=== PATIENT | male | born 1955 | race Caucasian/White ===

== ENCOUNTER 2024-05-12 18:00 | Emergency (ER) | payer MEDICARE, SELFPAY ==
[2024-05-12 18:03] VITALS: BP 166/69
--- NOTE | 2024-05-12 19:58 | ED.GENMED ---
History of Present Illness
General
Chief Complaint: Skin Surface Trauma
Source: patient
Exam Limitations: none
Time Seen by Provider: 05/12/24 19:10
Nursing documentation reviewed up to this point in time: agreed with
History of Present Illness
History of Present Illness:
68-year-old male with past medical history as documented presents to the emergency room for evaluation of a left thumb injury. Patient says he was slicing an onion with a sharp knife and cut off the very tip of his left thumb. It has been bleeding
since, came to the ER for evaluation. No other injuries. Unsure of last tetanus.
Past History
Past History
ED Past Medical History: Arrthythmia (A fib) and HTN
ED Past Surgical History: Cardiac (Pacemaker inserted 08/06/22)
Review of Systems
Review of Systems
All Other Systems: ROS reviewed and negative except as documented in HPI and ROS
Skin: Reports other (Fingertip avulsion)
Phy Exam
Physical Exam
Physical Exam:
General: Well appearing and non-toxic
HEENT: protecting airway
Neck: appears supple
CV: No evidence of cyanosis
Resp: No accessory muscle use
Abd: Non-distended
Extremities: Patient has a tiny avulsion of the tip of the left thumb with steady venous oozing�very superficial avulsion, no skin flap or suturable material, no nailbed involvement, no exposed bone
Neuro: Alert
Psych: Normal affect
Scores
Heart Failure Risk
Heart Failure Risk Score: Not Applicable
Heart Score for Chest Pain Patients
STEMI patient?: Not applicable
Withdrawal Assessment of Alcohol
Withdrawal Assessment Completed?: Not applicable
Course
Orders/Labs/Results
Orders:
Orders
05/12/24 19:58
Tetanus/Diphth/Acelpertussis [Adacel] 0.5 ml IM .ONCE ONE
Vital Signs
Initial and Last Documented VS:
Initial Vital Signs
Temp Pulse Resp BP Pulse Ox
36.6 C 64 16 166/69 98
05/12/24 18:03 05/12/24 18:03 05/12/24 18:03 05/12/24 18:03 05/12/24 18:03
Last Documented Vital Signs
Temp Pulse Resp BP Pulse Ox
36.6 C 64 16 166/69 98
05/12/24 18:03 05/12/24 18:03 05/12/24 18:03 05/12/24 18:03 05/12/24 18:03
MDM/Problems Addressed
Differential Diagnosis Includes:
Fingertip avulsion
MDM/Problems Addressed:
68-year-old male presents with tiny superficial fingertip avulsion from which he has steady venous bleeding. No skin flap or suturable material. Applied topical epinephrine and Surgicel, clean dressing. Tetanus updated. Discharge with PCP
follow-up.
*Pulse Oximetry
Patient hypoxic: no
*Critical Care Note
Total Time (30-74mins, 75-104mins- exclusive of procedures): Not Applicable
Data Reviewed
Source: patient and spouse
ED Attending Note
-
Portions of this chart may have been created with voice recognition software.� Occasional wrong word or��sound alike� substitutions may have occurred due to the inherent limitations of voice recognition software.
Discharge Plan
Departure
Patient Disposition: Home (Routine Discharge)
Date of Disposition: 05/12/24
Time of Disposition: 20:29
Patient with high blood pressure during this ER visit?: Yes
Discharge Problem:
Avulsion of fingertip
Instructions: Wound Care (DC)
Referrals:
Noelle Reyna, [Family Provider] - Follow up in 5-7 days
Activity Restrictions/Additional Instructions:
Thank you for visiting the Emergency Department at [facility].
1. Please schedule a follow up appointment as directed. Call first thing tomorrow morning to make an appointment.
2. If indicated, please take your medications as instructed and indicated on discharge paperwork.
3. If any of your symptoms do not improve, or persist, or become more severe within 6-12 hours, please return to the emergency department for further care.
4. Please return to the emergency department if you develop a headache, neck pain/stiffness, fever greater than 100.4F, chest pain, shortness of breath, persistent nausea, vomiting, slurred speech, difficulty walking, numbness/tingling, weakness,
signs of infection or any other symptoms that are worrisome to you.
Please call [phone] if you have any questions.
Interventions
Interventions:
*General Assessment Last Done: 05/12/24 19:09
*Neglect/Abuse Screening Last Done: 05/12/24 19:09
ED- Fall Risk Assessment Last Done: 05/12/24 19:09
ED-Skin Assessment Last Done: 05/12/24 19:09
Discharge Date and Time
Print Language: PUERTO RICAN
[2024-05-12] MEDS: ADACEL 0.5 ML IM (20:22)
== END 2024-05-12 21:03 | disposition home or self-care (01) ==
LOC: EMR 18:00
PROVIDERS: EMERGENCY PHYSICIAN Emergency Medicine; FAMILY PHYSICIAN Internal Medicine
DX: S69.92XA Unspecified injury of left wrist, hand and finger(s), initial encounter (principal); S61.012A Laceration without foreign body of left thumb without damage to nail, initial encounter; W26.0XXA Contact with knife, initial encounter; I48.91 Unspecified atrial fibrillation; I10 Essential (primary) hypertension; Z23 Encounter for immunization; Z95.0 Presence of cardiac pacemaker
CPT/HCPCS: 99282; 90471; 90715

== ENCOUNTER 2024-10-30 14:44 | Emergency (ER) | payer MEDICARE, SELFPAY ==
[2024-10-30 14:48] VITALS: BP 162/87
[2024-10-30 15:29] LABS: % Basophils 0.8 % (0-2); % Immature Granulocytes 0.6 % (0-0.5); % Lymphocytes 18.9 % (20.5-51.1); % Monocytes 12.4 % (1.7-9.3); % Neutrophils 66.3 % (42.2-75.2); Absolute Basophils 0.1 10^3/uL (0-0.2); Absolute Eosinophils 0.1 10^3/uL (0-0.7); Absolute Lymphocytes 1.2 10^3/uL (1.2-3.4); Absolute Monocytes 0.8 10^3/uL (0.1-0.6); Absolute Neutrophils 4.2 10^3/uL (1.4-6.5); Hematocrit 39.6 % (39.0-52.0); Mean Corp Hgb Conc. 35.4 g/dL (33.0-37.0); Mean Corpuscular Hgb 33.3 pg (27.0-31.0); Mean Corpuscular Volume 94.3 fL (80.0-94.0); Nucleated Red Blood Cells % 0 % (-); Red Cell Dist. Width 14.3 % (11.5-14.5); White Blood Cell Count 6.3 10^3/uL (4.8-10.8)
[2024-10-30 15:35] LABS: ALT (SGPT) 28 U/L (0-50); AST (SGOT) 28 U/L (17-59); Albumin 5.6 g/dl (3.5-5.0); Alkaline Phosphatase 82 U/L (38-126); Blood Urea Nitrogen 32 mg/dl (9-20); Calcium 10.4 mg/dl (8.4-10.2); Carbon Dioxide 18 mmol/L (22-30); Chloride 106 mmol/L (98-107); Glucose 111 mg/dl (70-99); Sodium 139 mmol/L (135-145); Total Bilirubin 0.9 mg/dl (0.2-1.3); Total Protein 8.6 g/dl (6.3-8.2); eGFR 59.47
[2024-10-30 16:07] LABS: Troponin I < 0.012 ng/ml
--- NOTE | 2024-10-30 16:57 | ED.GENMED ---
History of Present Illness
General
Chief Complaint: Chest Pain
Source: patient
Exam Limitations: none
Time Seen by Provider: 10/30/24 16:53
Nursing documentation reviewed up to this point in time: agreed with
History of Present Illness
History of Present Illness:
Patient is a 69-year-old male with history hypertension, with pacemaker presenting with right-sided chest wall pain. Patient states he initially noticed symptoms on Tuesday and they have been constant since. He describes a somewhat sharp pain in
his right mid chest that is clearly worse with movement, stretching. Patient denies any exertional or pleuritic component to discomfort. Patient denies any shortness of breath, dizziness/lightheadedness, nausea, diaphoresis. Patient denies any
recent viral illness. No recent cough. No fever. No known rash. Patient has been taking Tylenol at home. He does note some mild improvement with Tylenol.
Given symptoms have not resolved completely�patient came to the emergency department for evaluation.
Patient denies any known injury although states he does feel like he may have pulled a muscle.
Past History
Past History
ED Past Medical History: Arrthythmia (A fib) and HTN
ED Past Surgical History: Cardiac (Pacemaker inserted 08/06/22)
Review of Systems
Review of Systems
Allergies reviewed?: Yes
All Other Systems: ROS reviewed and negative except as documented in HPI and ROS
Phy Exam
Physical Exam
Physical Exam:
Vitals: Hypertensive, otherwise vital signs stable. Afebrile
General: Patient is well appearing, no acute distress. Nontoxic appearing
Skin: Warm and dry, no rashes or lesions
Head: Normocephalic, atraumatic
Eyes: Sclera nonicteric. EOMs intact. No nystagmus.
Throat: Protecting airway
Neck: Normal ROM, no cervical spine tenderness, no meningismus. Trachea midline
Cardiac: Regular rate and rhythm, no murmurs. Point tenderness to right sternal border. No overlying ecchymoses or deformity.
Pulm: Normal respiratory effort, no wheezes, rales, rhonchi heard on exam. O2 saturation 100 on room air
Abdomen: Abdomen soft. No abdominal tenderness.
Extremities: No evidence of cyanosis or edema. Palpable DP pulses
Neuro: AAOx3. Grossly intact.
Psychiatric: Normal affect.
Scores
Heart Score for Chest Pain Patients
STEMI patient?: No
History: Slightly or Non-Suspicious
ECG: Normal
Age: >/= 65 years
Risk Factors: 1 or 2 Risk Factors
Troponin: </= Normal Limit
Heart Score for Chest Pain Patients: 3
Heart Score Risk: 2.5% MACE over next 6 weeks
Course
Orders/Labs/Results
Orders:
Orders
10/30/24 14:45
Electrocardiogram (*1) Urgent
Reason for Study: Chest Pain
EKG- Treatment ONCE
10/30/24 15:04
Comprehensive Metabolic Panel Urgent
10/30/24 15:05
Complete Blood Count/With Diff Urgent
10/30/24 15:09
Troponin I Urgent
10/30/24 17:26
Interrogate Pacemaker- Treatment ONCE
CR Chest - 2 Views Urgent
Comment:
Reason For Exam: Right sided chest wall pain
Abnormal Lab Results
10/30/24 10/30/24
15:04 15:05
RBC 4.20 L 10^6/uL
(4.70-6.10)
MCV 94.3 H fL
(80.0-94.0)
MCH 33.3 H pg
(27.0-31.0)
Absolute Monos (auto) 0.8 H 10^3/uL
(0.1-0.6)
Immature Gran % 0.6 H %
(0-0.5)
Lymphocytes % 18.9 L %
(20.5-51.1)
Monocytes % 12.4 H %
(1.7-9.3)
Carbon Dioxide 18 L mmol/L
(22-30)
BUN 32 H mg/dl
(9-20)
Glucose 111 H mg/dl
(70-99)
Calcium 10.4 H mg/dl
(8.4-10.2)
Total Protein 8.6 H g/dl
(6.3-8.2)
Albumin 5.6 H g/dl
(3.5-5.0)
10/30/24 15:05
10/30/24 15:04
Vital Signs
Initial and Last Documented VS:
Initial Vital Signs
Temp Pulse Resp BP Pulse Ox
98.2 F 81 20 162/87 100
10/30/24 14:48 10/30/24 14:48 10/30/24 14:48 10/30/24 14:48 10/30/24 14:48
Last Documented Vital Signs
Temp Pulse Resp BP Pulse Ox
98.2 F 80 18 160/80 98
10/30/24 14:48 10/30/24 19:32 10/30/24 19:32 10/30/24 19:32 10/30/24 19:32
MDM/Problems Addressed
Differential Diagnosis Includes:
Not limited to: Costochondritis, chest wall strain, zoster, pleurisy, pneumonia, acute coronary syndrome
MDM/Problems Addressed:
69-year-old male history with history as documented presenting with right sided chest wall pain constant since Tuesday. Pain very clearly worse with movement, stretching. No exertional or pleuritic component. No associated shortness of breath,
diaphoresis, lightheadedness, etc. Patient hypertensive, otherwise arrives with stable vital signs. He is afebrile. On physical exam�patient very well-appearing, no apparent distress. He is talkative and nontoxic. Heart regular rate and rhythm.
Lungs clear bilaterally. He does have point tenderness to right mid sternal border. No ecchymoses, or rash. EKG shows an atrial paced rhythm without acute ischemic changes. Labs initiated prior to my assessment without clinically significant
abnormalities. Patient has known CKD. Troponin was undetectable�which I feel sufficient to rule out acute VT as symptoms been constant since Tuesday. Given point tenderness on exam and exacerbation of pain with straining/movement�very high
suspicion for musculoskeletal cause. Low suspicion for emergent cardiac process. Patient is not hypoxic or tachycardic. Do not suspect PE. No evidence of zoster. Will check chest x-ray and interrogate pacemaker. Given CKD�will avoid NSAIDs.
Patient took Tylenol at home. Anticipate discharge home.
Update: Chest x-ray reviewed by me which shows no evidence of pneumonia or acute abnormalities. I personally reviewed pacemaker interrogation report which shows no evidence of arrhythmia or abnormal findings. Patient remains very well-appearing,
in no apparent distress. He is ambulating throughout department without difficulty. Ultimately�suspect chest wall strain since. Feel patient is stable for discharge home with primary care follow-up, Tylenol for pain. Very close return
precautions discussed. Case was discussed with attending physician.
Chronic conditions affecting care:
Hypertension
Acute Exacerbation and/or Progression of Chronic Illness:
Acutely hypertensive
*Radiology
Radiology exam reviewed: preliminary read by ED provider
*Pulse Oximetry
Patient hypoxic: no
*EKG
Interpreted by ED Provider?: Yes
EKG Intrepretation Date: 10/30/24
Interpretation: abnormal
Comparison EKG: no comparison EKG present
Heart Rate: 81
Rate: normal
Rhythm: other (Atrial paced)
[place]: normal axis
Interval: normal QT interval
QRS Pattern: right bundle branch block
Ischemia: no ischemia
*Matrix Worker Interpretation
Rate: Matrix Worker- N/A
*Critical Care Note
Total Time (30-74mins, 75-104mins- exclusive of procedures): Not Applicable
ED Attending Note
-
Portions of this chart may have been created with voice recognition software.� Occasional wrong word or��sound alike� substitutions may have occurred due to the inherent limitations of voice recognition software.
Discharge Plan
Departure
Patient Disposition: Home (Routine Discharge)
Date of Disposition: 10/30/24
Time of Disposition: 19:28
Patient with high blood pressure during this ER visit?: Yes
Covid-19: Not Applicable
Discharge Problem:
Chest pain
Instructions: Costochondritis, Chest pain
Activity Restrictions/Additional Instructions:
Return to the emergency department with any persistent chest pain or chest pain worse with exertion or associated with shortness of breath, sweatiness, nausea/vomiting, lightheadedness/dizziness, weakness or any other concern
-I suspect your symptoms are likely due to a muscle strain.
-As discussed that she should continue to take Tylenol as needed for discomfort. Limit movements that further aggravate chest wall pain
-Follow-up with your primary care and/or cardiology for further evaluation/management
Monitor symptoms closely and return to the emergency department with any acute worsening/new symptoms or any other concerns
Interventions
Interventions:
*Risk Screen - Suicide Last Done: 10/30/24 14:48
*General Assessment Last Done: 10/30/24 14:48
*Neglect/Abuse Screening Last Done: 10/30/24 14:48
*ED COVID-19 Vaccine History Last Done: 10/30/24 16:31
*Nursing Disposition Last Done: 10/30/24 19:32
ED- Cardiac Assessment Last Done: 10/30/24 16:31
Discharge Date and Time
Discharge Date/Time: 10/30/24 19:45
Print Language: [email or web address]
[2024-10-30 19:32] VITALS: BP 160/80
== END 2024-10-30 19:45 | disposition home or self-care (01) ==
LOC: EMR 14:44
PROVIDERS: EMERGENCY PHYSICIAN Student in an Organized Health Care Education/Training Program
DX: R07.89 Other chest pain (principal); I12.9 Hypertensive chronic kidney disease with stage 1 through stage 4 chronic kidney disease, or unspecified chronic kidney disease; N18.9 Chronic kidney disease, unspecified; Z95.0 Presence of cardiac pacemaker
CPT/HCPCS: 99285; 71046; 80053; 84484; 85025; 93005